=== PATIENT | male | born 1970 | race Caucasian/White ===

== ENCOUNTER 2017-03-14 18:48 | Emergency (ER) | payer OTHER ==
[~2017-03-14] VITALS: Ht 175.3 cm; Wt 142.2 kg
[~2017-03-14 18:48] MED LIST: Z.0.NO CURRENT MEDS; ZITH250T PO
[2017-03-14 18:58] VITALS: BP 191/91; PULSE 102; RESP 16; TEMP 98.5; O2SAT 97
[2017-03-14] MEDS ORDERED: ROBA750T PO (20:23)
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
== END 2017-03-14 20:30 | disposition home or self-care (01) ==
LOC: PHEFT 18:48
DX: S29.012A Strain of muscle and tendon of back wall of thorax, initial encounter (principal); S39.012A Strain of muscle, fascia and tendon of lower back, initial encounter; V43.52XA Car driver injured in collision with other type car in traffic accident, initial encounter
CPT/HCPCS: 99283